=== PATIENT | male | born 1950 | race Caucasian/White ===

== ENCOUNTER → 2017-01-13 | Outpatient (CLI) | payer MEDICARE, OTHER | LOC: EMI 07:27 | DX: M51.16 Intervertebral disc disorders with radiculopathy, lumbar region (principal); M54.5 Low back pain; M51.36 Other intervertebral disc degeneration, lumbar region; M51.37 Other intervertebral disc degeneration, lumbosacral region; M47.816 Spondylosis without myelopathy or radiculopathy, lumbar region | CPT/HCPCS: 72148 ==

== ENCOUNTER → 2017-02-11 | Outpatient (CLI) | payer MEDICARE, OTHER ==
[2017-02-11 08:53] LABS: HEMOGLOBIN 14.5 gm/dl (14.0-17.5); RED BLOOD COUNT 4.56 M/UL (4.20-5.50); WHITE BLOOD COUNT 6.8 K/UL (4.5-11.0)
[2017-02-11 09:09] LABS: BUN/CREATININE RATIO 17 (0-10)
== END ==
LOC: LAB 08:14
PROVIDERS: Internal Medicine
DX: E78.5 Hyperlipidemia, unspecified (principal); I10 Essential (primary) hypertension; R53.82 Chronic fatigue, unspecified; E11.9 Type 2 diabetes mellitus without complications; D51.0 Vitamin B12 deficiency anemia due to intrinsic factor deficiency
CPT/HCPCS: 36415; 80053; 80061; 83036; 85027

== ENCOUNTER → 2021-02-16 | Outpatient (CLI) | payer MEDICARE, OTHER ==
[~2021-02-16] MED LIST: BYDUREON P2 MG/0.65 SQ; BYETTA 1010 MCG/2.4 SQ; CARDIZEM CD120 MG PO; ECOTRIN81 MG PO; FENOFIBRATE145 MG PO; GLUCOPHAGE1000 MG PO; HYTRIN CAP 5 MG5 MG PO; LEVEMIR100 UNIT/1 SQ; LIPITOR TAB 2020 MG PO; LOPRESSOR 25 MG25 MG PO; LOVAZA1 GM PO; MAGOX 400400 MG PO; NOVOLOG FL100 UNIT/1 SQ; OMEPRAZOLE20 MG PO; PROSCAR5 MG PO; VITAMIN B-121000 MC3 PO; ZETIA 10 MG TAB10 MG PO; ZOLOFT50 MG PO; ZYLOPRIM 300 M300 MG PO
[2021-02-16 10:07] LABS: HEMOGLOBIN 15.1 gm/dl (14.0-17.5); RED BLOOD COUNT 4.56 M/UL (4.20-5.50); WHITE BLOOD COUNT 8.2 K/UL (4.5-11.0)
[2021-02-16 10:27] LABS: BUN/CREATININE RATIO 23 (0-10)
[2021-02-17 15:11] LABS: SARS COV-2 IGM AB Negative (Negative)
== END ==
LOC: LAB 08:38
PROVIDERS: Internal Medicine
DX: E11.42 Type 2 diabetes mellitus with diabetic polyneuropathy (principal); E55.9 Vitamin D deficiency, unspecified; E78.2 Mixed hyperlipidemia; F41.8 Other specified anxiety disorders; Z20.822 Contact with and (suspected) exposure to COVID-19
CPT/HCPCS: 36415; 80053; 80061; 82043; 83036; 84443; 84550; 85025; 85652; 86140; 86769

== ENCOUNTER 2021-05-10 19:38 | Emergency (ER) | payer MEDICARE, OTHER ==
[2021-05-10] MEDS ORDERED: PERCOCET 5-3251 EACH PO (23:27)
[2021-05-12] MEDS ORDERED: OXYBUTYNIN CHLO10 MG PO (13:33)
[2021-05-12] MEDS ORDERED: LISINOPRIL10 MG PO (13:33)
[2021-05-12] MEDS ORDERED: VASCEPA1 GM PO (13:34)
[2021-05-12] MEDS ORDERED: ROCKLATAN 0.022.5 ML EYEBOTH (13:35)
[2021-05-12] MEDS ORDERED: VITAMIN D325 MCG PO (13:36)
[2021-05-14] MEDS ORDERED: HYDROCODON-ACE1 EAC6 PO (10:03)
== END 2021-05-10 23:45 | disposition home or self-care (01) ==
LOC: ER1 19:38
DX: S42.442A Displaced fracture (avulsion) of medial epicondyle of left humerus, initial encounter for closed fracture (principal); E11.9 Type 2 diabetes mellitus without complications; I10 Essential (primary) hypertension; Z90.49 Acquired absence of other specified parts of digestive tract; W01.10XA Fall on same level from slipping, tripping and stumbling with subsequent striking against unspecified object, initial encounter
CPT/HCPCS: 29105; 73070; 99283

== ENCOUNTER → 2021-05-11 | Outpatient (CLI) | payer MEDICARE, OTHER ==
[~2021-05-11] MED LIST changes: +HYDROCODON-ACE1 EAC6 PO; +LISINOPRIL10 MG PO; +OXYBUTYNIN CHLO10 MG PO; +PERCOCET 5-3251 EACH PO; +ROCKLATAN 0.022.5 ML EYEBOTH; +VASCEPA1 GM PO; +VITAMIN D325 MCG PO
== END ==
LOC: KOH-I 15:30
DX: S42.402A Unspecified fracture of lower end of left humerus, initial encounter for closed fracture (principal); X58.XXXA Exposure to other specified factors, initial encounter; Z20.822 Contact with and (suspected) exposure to COVID-19
CPT/HCPCS: 73200; U0003

== ENCOUNTER → 2021-05-12 | Outpatient (CLI) | payer MEDICARE, OTHER ==
[2021-05-12 12:46] LABS: HEMOGLOBIN 14.7 gm/dl (14.0-17.5); RED BLOOD COUNT 4.45 M/UL (4.20-5.50)
[2021-05-12 13:00] LABS: BUN/CREATININE RATIO 23 (0-10)
== END ==
LOC: OPSV2 11:30
PROVIDERS: Orthopaedic Surgery
DX: Z01.818 Encounter for other preprocedural examination (principal); S42.495A Other nondisplaced fracture of lower end of left humerus, initial encounter for closed fracture
CPT/HCPCS: 36415; 80048; 85025

== ENCOUNTER → 2021-05-14 | Day surgery (SDC) | payer MEDICARE, OTHER ==
[~2021-05-14] VITALS: Ht 175.3 cm; Wt 112.0 kg
== END | disposition home or self-care (01) ==
LOC: OR 07:32
DX: S42.402A Unspecified fracture of lower end of left humerus, initial encounter for closed fracture (principal); I10 Essential (primary) hypertension; E78.5 Hyperlipidemia, unspecified; E11.9 Type 2 diabetes mellitus without complications; N40.1 Benign prostatic hyperplasia with lower urinary tract symptoms; R39.15 Urgency of urination; G47.30 Sleep apnea, unspecified; F17.290 Nicotine dependence, other tobacco product, uncomplicated; F32.9 Major depressive disorder, single episode, unspecified; Z99.89 Dependence on other enabling machines and devices; Z88.5 Allergy status to narcotic agent; Z79.82 Long term (current) use of aspirin; Z79.4 Long term (current) use of insulin; Z79.891 Long term (current) use of opiate analgesic; Z79.899 Other long term (current) drug therapy; W01.0XXA Fall on same level from slipping, tripping and stumbling without subsequent striking against object, initial encounter
CPT/HCPCS: 73080; 76000; 82962; C1713; J0171; J0690; J1100; J2001; J2250; J2704; J2710; J2795; J7030; J7120

== ENCOUNTER → 2021-06-11 | Outpatient (CLI) | payer MEDICARE, OTHER ==
[2021-06-11 10:29] LABS: HEMOGLOBIN 16.6 gm/dl (14.0-17.5); RED BLOOD COUNT 4.99 M/UL (4.20-5.50); WHITE BLOOD COUNT 8.3 K/UL (4.5-11.0)
[2021-06-11 11:07] LABS: BUN/CREATININE RATIO 28 (0-10)
[2021-06-12 10:14] LABS: VITAMIN D, 25-HYDROXY 39.5 ng/mL (30.0-100.0)
[2021-06-12 15:09] LABS: SARS COV-2 IGM AB Negative (Negative)
== END ==
LOC: LAB 08:49
PROVIDERS: Internal Medicine
DX: Z12.5 Encounter for screening for malignant neoplasm of prostate (principal); E11.42 Type 2 diabetes mellitus with diabetic polyneuropathy; E78.2 Mixed hyperlipidemia; E55.9 Vitamin D deficiency, unspecified; F41.8 Other specified anxiety disorders; D51.0 Vitamin B12 deficiency anemia due to intrinsic factor deficiency; D52.9 Folate deficiency anemia, unspecified; Z20.822 Contact with and (suspected) exposure to COVID-19
CPT/HCPCS: 36415; 80053; 80061; 82043; 82607; 82746; 83036; 84443; 84550; 85025; 85652; 86140; 86769; G0103

== ENCOUNTER → 2022-02-08 | Outpatient (CLI) | payer MEDICARE, OTHER | LOC: RAD 11:12 | DX: M51.36 Other intervertebral disc degeneration, lumbar region (principal); M50.00 Cervical disc disorder with myelopathy, unspecified cervical region; M47.812 Spondylosis without myelopathy or radiculopathy, cervical region; M47.816 Spondylosis without myelopathy or radiculopathy, lumbar region | CPT/HCPCS: 72110 ==